=== PATIENT | male | born 1975 | race Caucasian/White ===

== ENCOUNTER 2022-01-31 08:39 | Outpatient (CLI) | payer OTHER, SELFPAY ==
--- NOTE | 2022-01-31 08:49 | EST_ITS ---
Patient Info Name: Joe Petersen Age: 46 years : 1975 Gender: Male Ht: 68 in Wt: 215 lbs BSA: 2.20 m2 Exam Date: 01/31/2022 9:08 AM Exam Location: [facility] Stress Patient Status: Outpatient Admit Date: 01/31/2022 Staff Ordering Physician: Abdoul Chino MD Attending Provider: Abdoul Chino MD Exercise Technologist: Paula Lea RD Exercise Physician: Roman Pedroza DO Exam Type: CA stress test treadmill Study Info Indications R07.89 - Other chest pain A treadmill exercise stress test was performed. Summary 1. 1. Negative [facility]his[facility]k exercise stress test for ischemic ST changes by ECG criteria. 2. 2. Good functional capacity, achieving 12 METs of workload. 3. 3. Appropriate HR response to exercise. 4. 4. Appropriate HR recovery at 1 minute post exercise. 5. 5. No imaging with stress testing. 6. 6. Patient informed of the above results. Protocol: [facility] Stress ECG Details Stage: REST Duration (min): 2 min : 22 sec Speed (mph): 0.0 Grade (%): 0 HR (bpm): 73 SBP (mmHg): 137 DBP (mmHg): 81 METS: --- Stage: REST Duration (min): 6 min : 22 sec Speed (mph): 0.0 Grade (%): 0 HR (bpm): 90 SBP (mmHg): 137 DBP (mmHg): 81 METS: --- Stage: STAGE 1 Duration (min): 1 min : 0 sec Speed (mph): 1.7 Grade (%): 10 HR (bpm): 100 SBP (mmHg): 137 DBP (mmHg): 81 METS: --- Stage: STAGE 1 Duration (min): 2 min : 0 sec Speed (mph): 1.7 Grade (%): 10 HR (bpm): 104 SBP (mmHg): 137 DBP (mmHg): 81 METS: --- Stage: STAGE 1 Duration (min): 3 min : 0 sec Speed (mph): 1.7 Grade (%): 10 HR (bpm): 109 SBP (mmHg): 155 DBP (mmHg): 72 METS: --- Stage: STAGE 2 Duration (min): 1 min : 0 sec Speed (mph): 2.5 Grade (%): 12 HR (bpm): 121 SBP (mmHg): 155 DBP (mmHg): 72 METS: --- Stage: STAGE 2 Duration (min): 2 min : 0 sec Speed (mph): 2.5 Grade (%): 12 HR (bpm): 124 SBP (mmHg): 151 DBP (mmHg): 71 METS: --- Stage: STAGE 2 Duration (min): 3 min : 0 sec Speed (mph): 2.5 Grade (%): 12 HR (bpm): 131 SBP (mmHg): 151 DBP (mmHg): 71 METS: --- Stage: STAGE 3 Duration (min): 1 min : 0 sec Speed (mph): 3.4 Grade (%): 14 HR (bpm): 140 SBP (mmHg): 151 DBP (mmHg): 67 METS: --- Stage: STAGE 3 Duration (min): 2 min : 0 sec Speed (mph): 3.4 Grade (%): 14 HR (bpm): 145 SBP (mmHg): 151 DBP (mmHg): 67 METS: --- Stage: STAGE 3 Duration (min): 3 min : 0 sec Speed (mph): 3.4 Grade (%): 14 HR (bpm): 152 SBP (mmHg): 166 DBP (mmHg): 81 METS: --- Stage: STAGE 4 Duration (min): 1 min : 0 sec Speed (mph): 4.2 Grade (%): 16 HR (bpm): 162 SBP (mmHg): 166 DBP (mmHg): 81 METS: --- Stage: STAGE 4 Duration (min): 2 min : 0 sec Speed (mph): 4.2 G
== END 2022-01-31 08:40 | disposition home or self-care (01) ==
LOC: ANHCARD 08:43
PROVIDERS: PCP Internal Medicine; Visit Provider Internal Medicine
DX: R07.89 Other chest pain (principal)
CPT/HCPCS: 93017

== ENCOUNTER → 2022-04-11 06:58 | Outpatient (CLI) | payer OTHER, SELFPAY ==
--- NOTE | ~2022-04-11 | MR_ITS ---
EXAMINATION: MR knee LT wo con DATE: 04/11/2022 07:26 INDICATION: Unspecified tear of unspecified meniscus, current injury. Left knee pain. TECHNIQUE: Magnetic resonance imaging (MRI) of the left knee was performed without intravenous contra st. Sequences included axial PD-weighted FS FSE, coronal PD-weighted FSE and PD-weighted FS FSE, sagi ttal PD-weighted FSE, and sagittal T2-weighted FS FSE. COMPARISON: None. FINDINGS: Medial compartment: Medial meniscus is normal. There is cartilage surface irregularity of tibial condyle. There is shallo w partial-thickness cartilage loss of femoral condyle involving the central articular surface. There are tiny osteophytes. Lateral compartment: Lateral meniscus is normal. Femoral cartilage is normal. There is shallow partial-thickness cartilage loss of tibial condyle medially with mild subchondral edema-like marrow signal intensity. Patellofemoral compartment: There is full-thickness cartilage loss of patellar median ridge and lateral facet with mild subchondr al edema-like marrow signal intensity. There is cartilage surface irregularity of trochlea. Osteophyt es are noted. Ligaments and tendons: The anterior and posterior cruciate ligaments are normal. Medial collateral ligament and lateral yvan ateral ligament complex are normal. There is mild patellar tendinopathy. Fluid: There is a small knee joint effusion. There is mild superficial infrapatellar bursitis. There is a mo derate-sized multiloculated Cole's cyst. IMPRESSION: 1. Severe chondrosis of patellofemoral compartment and mild chondrosis of medial and lateral compartm ents. 2. Normal menisci. 3. Small knee joint effusion. 4. Moderate-sized loculated Cole's cyst. Reviewed, dictated and finalized at location A. IMPRESSION: 1. Severe chondrosis of patellofemoral compartment and mild chondrosis of media l and lateral compartments. 2. Normal menisci. 3. Small knee joint effusion. 4. Moderate-sized loculated Cole's cyst.
== END ==
PROVIDERS: Visit Provider Chiropractor Rehabilitation
DX: S83.207A Unspecified tear of unspecified meniscus, current injury, left knee, initial encounter (principal); M22.2X2 Patellofemoral disorders, left knee; M25.462 Effusion, left knee; M71.22 Synovial cyst of popliteal space [Baker], left knee
CPT/HCPCS: 73721